=== PATIENT | female | born 1975 | race Caucasian/White ===

== ENCOUNTER 2023-06-11 19:45 | Inpatient (IN) | payer MEDICARE, OTHER ==
[~2023-06-11] VITALS: Ht 167.6 cm; Wt 78.5 kg
[2023-06-11 20:43] LABS: BASOPHILS # (AUTO) 0.1 K/uL (0.0-0.2); BASOPHILS % (AUTO) 0.7 % (0.0-2.0); EOSINOPHILS # (AUTO) 0.8 K/uL (0.0-0.7); EOSINOPHILS % (AUTO) 6.8 % (0.0-6.0); HEMATOCRIT 33 % (33-45); HEMOGLOBIN 10.2 g/dL (11.5-14.8); LYMPHOCYTES # (AUTO) 0.7 K/uL (0.8-4.8); MEAN CORPUSCULAR HEMOGLOBIN 29 PG (26.0-33.0); MEAN CORPUSCULAR HGB CONC 31 g/dl (31.0-36.0); MEAN CORPUSCULAR VOLUME 93 fL (82-100); MONOCYTES # (AUTO) 0.8 K/uL (0.1-1.30); MONOCYTES % (AUTO) 6.9 % (2.0-12.0); NEUTROPHILS # (AUTO) 9.9 K/uL (1.8-8.9); NEUTROPHILS % (AUTO) 79.6 % (43.0-81.0); PLATELET COUNT (AUTO) 385 K/uL (150-450); RED BLOOD CELL COUNT(AUTO) 3.53 MIL/uL (4.0-5.2); RED CELL DISTRIBUTION WIDTH 18.2 % (11.5-15.0); WHITE BLOOD COUNT (AUTO) 12.4 K/uL (4.3-11.0)
[2023-06-11 20:58] LABS: ABG BASE EXCESS -6.1 mmol/L; ABG OXYGEN SATURATION 92.3 % (92.0-98.5); ABG PCO2 40.9 mmHg (35.0-45.0); ABG PH 7.304 (7.350-7.450); ABG PO2 71.1 mmHg (75.0-100.0); ABG TOTAL HEMOGLOBIN 11.3 G/dL (12.0-16.0); COHb 0.3 % (0.5-1.5); MetHb 0.3 % (0.0-1.5); O2Hb 91.7 % (94.0-97.0); SITE, ABG Left Radial; VENT MODE, BG Nasal Cannula
[2023-06-11 21:05] LABS: PREGNANCY TEST URINE QUAL NEGATIVE (NEGATIVE)
[2023-06-11 21:16] LABS: APPEARANCE,URINE SLIGHTLY CLOUDY (CLEAR); BILIRUBIN,URINE NEGATIVE (NEGATIVE); BLOOD, URINE 1+ Ery/uL (NEGATIVE); COLOR,URINE YELLOW (YELLOW); KETONES,URINE NEGATIVE (NEGATIVE); LEUKOCYTE ESTERASE ,URINE 1+ (NEGATIVE); NITRITE, URINE POSITIVE (NEGATIVE); PROTEIN,URINE 1+ mg/dl (NEGATIVE); UGLUCOSE NEGATIVE (NEGATIVE); UROBILINOGEN,URINE 0.2 EU/dL (0.2)
[2023-06-11 21:19] LABS: SERUM AMMONIA 24 umol/L (11-32)
[2023-06-11 21:21] LABS: MAGNESIUM 3.5 mg/dL (1.8-2.4)
[2023-06-11 21:26] LABS: ALANINE AMINOTRANSFERASE 9 U/L (12-78); ALBUMIN 2.6 g/dL (3.4-5.0); ALKALINE PHOSPHATASE 182 U/L (46-116); ASPARTATE AMINOTRANSFERASE 6 U/L (15-37); BILIRUBIN,DIRECT 0.1 mg/dL (0.0-0.2); BILIRUBIN,TOTAL 0.3 mg/dL (0.2-1.0); CALCIUM, SERUM 11.3 mg/dL (8.5-10.1); CARBON DIOXIDE 19 mmol/L (21-32); CHLORIDE 100 mmol/L (98-107); CREATININE 6.8 mg/dL (0.6-1.3); GLUCOSE 99 mg/dL (74-106); POTASSIUM 4.9 mmol/L (3.5-5.1); SODIUM SERUM 131 mmol/L (136-145)
[2023-06-11 21:32] LABS: ACETAMINOPHEN 0 ug/ml (10-30)
[2023-06-11 21:35] LABS: UREA NITROGEN, BLOOD 73 mg/dL (7-18)
[2023-06-11 21:57] LABS: SALICYLATE 5.1 mg/dL (2.8-20.0)
[2023-06-11] MEDS ORDERED: CEFTRIAXONE 1GM BAG (ER ONLY) 1 GM/50 ML PIGGYBACK IV ONE (22:00)
[2023-06-11] MEDS ORDERED: CEFTRIAXONE 1GM BAG (ER ONLY) 50 ML IV ONE (22:04)
[2023-06-11 22:18] LABS: ADD URINE CULTURE YES; BACTERIA,URINE 4+ /HPF (None Seen); MUCUS,URINE Moderate /LPF (None Seen)
[2023-06-11 22:19] LABS: ALCOHOL, BLOOD < 3 mg/dL (0-10)
[2023-06-11 22:22] LABS: NT-PRO BNP 223 pg/mL (0-125)
[2023-06-11] MEDS ORDERED: VANCOMYCIN 1 GM in IV D5W 250 ML IV ONE (22:30)
[2023-06-11] MEDS ORDERED: AZITHROMYCIN 500 MG in IV D5W 250 ML IV ONE (22:30)
[2023-06-11] MEDS ORDERED: PIPERACILLIN /TAZOBACTAM 3.375 G in IV D5W 50 ML IV ONE (22:30)
[2023-06-11] MEDS ORDERED: PIPERACI/TAZO 3.375GM/D5W 50ML PB IV ONE (22:32)
[2023-06-11] MEDS ORDERED: VANCOMYCIN 1 GM /D5W 250 ML PB IV ONE (22:32)
[2023-06-11] MEDS ORDERED: AZITHROMYCIN 500 MG VIAL ONE (22:32)
[2023-06-11] MEDS ORDERED: IV NS 0.9% 1,000 ML BAG IV ONE (23:00)
[2023-06-11] MEDS ORDERED: IV NS 0.9% 1,000 ML IV PRN (23:30)
[2023-06-11] MEDS ORDERED: ACETAMINOPHEN 325 MG TABLET PO PRN (23:30)
[2023-06-11] MEDS ORDERED: ONDANSETRON HCL/PF 4 MG/2 ML VIAL IVP PRN (23:30)
[2023-06-12 00:50] LABS: LIPASE 125 U/L (16-77)
[2023-06-12] MEDS ORDERED: HEPARIN SODIUM, PORCINE 5000 UNITS/1 ML VIAL ONE (05:16)
[2023-06-12] MEDS: HEPARIN SODIUM, PORCINE 5000 UNITS/1 ML VIAL SQ SCH ×3 (05:52→22:05)
[2023-06-12] MEDS: PIPERACILLIN /TAZOBACTAM 2.25 G in IV D5W 50 ML IV SCH ×3 (06:50→22:26)
[2023-06-12 07:02] LABS: BASOPHILS # (AUTO) 0.1 K/uL (0.0-0.2); BASOPHILS % (AUTO) 0.5 % (0.0-2.0); EOSINOPHILS # (AUTO) 0.7 K/uL (0.0-0.7); EOSINOPHILS % (AUTO) 4.9 % (0.0-6.0); HEMATOCRIT 31 % (33-45); HEMOGLOBIN 9.7 g/dL (11.5-14.8); LYMPHOCYTES % (AUTO) 6.9 % (20.0-44.0); MEAN CORPUSCULAR HEMOGLOBIN 29 PG (26.0-33.0); MEAN CORPUSCULAR HGB CONC 31 g/dl (31.0-36.0); MEAN CORPUSCULAR VOLUME 94 fL (82-100); MONOCYTES # (AUTO) 1.1 K/uL (0.1-1.30); MONOCYTES % (AUTO) 7.4 % (2.0-12.0); NEUTROPHILS # (AUTO) 12.1 K/uL (1.8-8.9); NEUTROPHILS % (AUTO) 80.3 % (43.0-81.0); PLATELET COUNT (AUTO) 333 K/uL (150-450); RED CELL DISTRIBUTION WIDTH 18.1 % (11.5-15.0)
[2023-06-12 07:30] LABS: CALCIUM, SERUM 10.4 mg/dL (8.5-10.1); CREATININE 6.2 mg/dL (0.6-1.3); MAGNESIUM 3.4 mg/dL (1.8-2.4); PHOSPHORUS 7.5 mg/dL (2.5-4.9); POTASSIUM 5.8 mmol/L (3.5-5.1)
[2023-06-12] MEDS ORDERED: LISI10TA29 PO (09:03)
[2023-06-12] MEDS ORDERED: GABA-536 PO (09:03)
[2023-06-12] MEDS ORDERED: ATOR10TA PO (09:03)
[2023-06-12] MEDS ORDERED: LITH300T3 PO (09:03)
[2023-06-12] MEDS ORDERED: ARIP20TA4 PO (09:03)
[2023-06-12] MEDS: DOXYCYCLINE 100 MG in IV D5W 100 ML IV SCH ×2 (11:16→20:58)
[2023-06-12] MEDS ORDERED: HEPARIN SODIUM,PORCINE/PF 50 UNIT/5 ML DISP.SYRIN IV ONE (13:00)
[2023-06-12] MEDS ORDERED: HEPARIN SODIUM, PORCINE 1000 UNIT/1 ML VIAL IV ONE (13:30)
[2023-06-12] MEDS ORDERED: HEPARIN-LOCK FLUSH PORCINE PF 100 UNITS/1 ML (10 ML)DISP.SYRIN IV ONE (14:00)
[2023-06-12 16:57] LABS: CALCIUM, SERUM 10.9 mg/dL (8.5-10.1); CREATININE 5.8 mg/dL (0.6-1.3)
[2023-06-12] MEDS ORDERED: ALBUMIN 25% 25 GM in PREMIX 1 EA IV PRN ×2 (18:30→19:00)
[2023-06-12 21:00] VITALS: BP 120/72; TEMP 97.8; O2SAT 98
[2023-06-12] MEDS: IV D5W 1,000 ML IV PRN (21:12)
[2023-06-13] VITALS: BP 111/60; TEMP 98.4; O2SAT 97
[2023-06-13 04:15] VITALS: BP 117/77; TEMP 98.1; O2SAT 98
[2023-06-13] MEDS: PIPERACILLIN /TAZOBACTAM 2.25 G in IV D5W 50 ML IV SCH ×3 (04:26→22:07)
[2023-06-13 07:00] VITALS: BP 130/75; TEMP 98.6; O2SAT 95
[2023-06-13 07:33] LABS: BASOPHILS % (AUTO) 0.5 % (0.0-2.0); EOSINOPHILS # (AUTO) 0.6 K/uL (0.0-0.7); EOSINOPHILS % (AUTO) 6.1 % (0.0-6.0); HEMATOCRIT 29 % (33-45); HEMOGLOBIN 9.7 g/dL (11.5-14.8); LYMPHOCYTES # (AUTO) 1.1 K/uL (0.8-4.8); LYMPHOCYTES % (AUTO) 11.7 % (20.0-44.0); MEAN CORPUSCULAR HEMOGLOBIN 31 PG (26.0-33.0); MEAN CORPUSCULAR HGB CONC 33 g/dl (31.0-36.0); MEAN CORPUSCULAR VOLUME 92 fL (82-100); MONOCYTES # (AUTO) 0.7 K/uL (0.1-1.30); MONOCYTES % (AUTO) 7.5 % (2.0-12.0); NEUTROPHILS # (AUTO) 6.9 K/uL (1.8-8.9); NEUTROPHILS % (AUTO) 74.2 % (43.0-81.0); PLATELET COUNT (AUTO) 294 K/uL (150-450); RED BLOOD CELL COUNT(AUTO) 3.18 MIL/uL (4.0-5.2); RED CELL DISTRIBUTION WIDTH 17.4 % (11.5-15.0); WHITE BLOOD COUNT (AUTO) 9.3 K/uL (4.3-11.0)
[2023-06-13 07:45] LABS: ALANINE AMINOTRANSFERASE < 6 U/L (12-78); ALBUMIN 2.3 g/dL (3.4-5.0); ALKALINE PHOSPHATASE 178 U/L (46-116); ASPARTATE AMINOTRANSFERASE 9 U/L (15-37); BILIRUBIN,TOTAL 0.3 mg/dL (0.2-1.0); CALCIUM, SERUM 10.5 mg/dL (8.5-10.1); CARBON DIOXIDE 23 mmol/L (21-32); CHLORIDE 104 mmol/L (98-107); CREATININE 3.8 mg/dL (0.6-1.3); GLUCOSE 126 mg/dL (74-106); MAGNESIUM 2.4 mg/dL (1.8-2.4); POTASSIUM 3.8 mmol/L (3.5-5.1); SODIUM SERUM 135 mmol/L (136-145); TOTAL PROTEIN, SERUM 7.2 g/dL (6.4-8.2); UREA NITROGEN, BLOOD 39 mg/dL (7-18)
[2023-06-13 08:21] LABS: CREATINE KINASE, TOTAL 10 U/L (26-192)
[2023-06-13] MEDS: DOXYCYCLINE 100 MG in IV D5W 100 ML IV SCH ×2 (09:00→20:38)
[2023-06-13] MEDS ORDERED: PIPERACILLIN /TAZOBACTAM 3.375 G in IV D5W 50 ML IV SCH (10:30)
[2023-06-13] MEDS: HEPARIN SODIUM, PORCINE 5000 UNITS/1 ML VIAL SQ SCH ×2 (10:55→20:39)
[2023-06-13 12:00] VITALS: BP 127/78; TEMP 98.4; O2SAT 96
[2023-06-13] MEDS ORDERED: TUBERCULIN,PURIF.PROT.DERIV. 5 TU/0.1 ML VIAL ID ONE (12:00)
[2023-06-13 16:00] VITALS: BP 134/82; TEMP 98.6; O2SAT 97
[2023-06-13 20:00] VITALS: BP 127/86; TEMP 98.3; O2SAT 97
[2023-06-13] MEDS: ATORVASTATIN 10 MG TABLET PO SCH (22:00)
[2023-06-14] VITALS: BP 125/81; TEMP 98.1; O2SAT 100
[2023-06-14] MEDS: IV D5W 1,000 ML IV PRN (00:30)
[2023-06-14 04:00] VITALS: BP 125/81; TEMP 98.1; O2SAT 98
[2023-06-14] MEDS: PIPERACILLIN /TAZOBACTAM 2.25 G in IV D5W 50 ML IV SCH ×3 (04:51→21:48)
[2023-06-14 07:31] LABS: BASOPHILS % (AUTO) 0.5 % (0.0-2.0); EOSINOPHILS # (AUTO) 0.5 K/uL (0.0-0.7); EOSINOPHILS % (AUTO) 5.1 % (0.0-6.0); HEMATOCRIT 32 % (33-45); HEMOGLOBIN 10.2 g/dL (11.5-14.8); LYMPHOCYTES # (AUTO) 1.4 K/uL (0.8-4.8); LYMPHOCYTES % (AUTO) 14.6 % (20.0-44.0); MEAN CORPUSCULAR HEMOGLOBIN 30 PG (26.0-33.0); MEAN CORPUSCULAR HGB CONC 32 g/dl (31.0-36.0); MEAN CORPUSCULAR VOLUME 92 fL (82-100); MONOCYTES # (AUTO) 0.6 K/uL (0.1-1.30); MONOCYTES % (AUTO) 6.5 % (2.0-12.0); NEUTROPHILS # (AUTO) 7.2 K/uL (1.8-8.9); NEUTROPHILS % (AUTO) 73.3 % (43.0-81.0); PLATELET COUNT (AUTO) 289 K/uL (150-450); RED BLOOD CELL COUNT(AUTO) 3.47 MIL/uL (4.0-5.2); RED CELL DISTRIBUTION WIDTH 17.1 % (11.5-15.0); WHITE BLOOD COUNT (AUTO) 9.8 K/uL (4.3-11.0)
[2023-06-14 07:35] LABS: CALCIUM, SERUM 11.1 mg/dL (8.5-10.1); CREATININE 2.6 mg/dL (0.6-1.3); POTASSIUM 3.6 mmol/L (3.5-5.1)
[2023-06-14 08:00] VITALS: BP 131/88; TEMP 98.2; O2SAT 94
[2023-06-14] MEDS: DOXYCYCLINE 100 MG in IV D5W 100 ML IV SCH ×2 (08:13→21:48)
[2023-06-14] MEDS: HEPARIN SODIUM, PORCINE 5000 UNITS/1 ML VIAL SQ SCH ×2 (08:13→21:49)
[2023-06-14] MEDS ORDERED: IV D5/ 0.9% NACL 1,000 ML IV ONE (11:00)
[2023-06-14 12:00] VITALS: BP 140/85; TEMP 98.2; O2SAT 93
[2023-06-14 16:11] VITALS: BP 150/91; TEMP 98.2; O2SAT 94
[2023-06-14 19:00] VITALS: BP 142/84; TEMP 99.7; O2SAT 93
[2023-06-14 21:50] LABS: HIV-1 p24 ANTIGEN NON REACTIVE (NONREACTIVE); HIV-1/2 ANTIBODY NON REACTIVE (NONREACTIVE)
[2023-06-14] MEDS: ATORVASTATIN 10 MG TABLET PO SCH (21:50)
[2023-06-15 04:06] LABS: PTH, INTACT 36 pg/mL (15-65)
[2023-06-15] MEDS: PIPERACILLIN /TAZOBACTAM 2.25 G in IV D5W 50 ML IV SCH ×3 (04:11→21:08)
[2023-06-15] MEDS ORDERED: hydrALAZINE HCL IV 20 MG VIAL IV PRN (05:30)
[2023-06-15 07:00] VITALS: BP 147/97; TEMP 98.6; O2SAT 95
[2023-06-15 08:11] LABS: BASOPHILS # (AUTO) 0.1 K/uL (0.0-0.2); BASOPHILS % (AUTO) 0.5 % (0.0-2.0); EOSINOPHILS # (AUTO) 0.4 K/uL (0.0-0.7); EOSINOPHILS % (AUTO) 3.9 % (0.0-6.0); HEMATOCRIT 34 % (33-45); LYMPHOCYTES # (AUTO) 1.4 K/uL (0.8-4.8); LYMPHOCYTES % (AUTO) 12.6 % (20.0-44.0); MEAN CORPUSCULAR HEMOGLOBIN 30 PG (26.0-33.0); MEAN CORPUSCULAR HGB CONC 33 g/dl (31.0-36.0); MEAN CORPUSCULAR VOLUME 91 fL (82-100); MONOCYTES # (AUTO) 0.5 K/uL (0.1-1.30); MONOCYTES % (AUTO) 4.9 % (2.0-12.0); NEUTROPHILS # (AUTO) 8.5 K/uL (1.8-8.9); NEUTROPHILS % (AUTO) 78.1 % (43.0-81.0); PLATELET COUNT (AUTO) 298 K/uL (150-450); RED BLOOD CELL COUNT(AUTO) 3.71 MIL/uL (4.0-5.2); RED CELL DISTRIBUTION WIDTH 17.4 % (11.5-15.0); WHITE BLOOD COUNT (AUTO) 10.8 K/uL (4.3-11.0)
[2023-06-15 08:22] LABS: CALCIUM, SERUM 11.5 mg/dL (8.5-10.1); CREATININE 2.6 mg/dL (0.6-1.3); POTASSIUM 3.8 mmol/L (3.5-5.1)
[2023-06-15] MEDS: DOXYCYCLINE 100 MG in IV D5W 100 ML IV SCH ×2 (09:41→21:53)
[2023-06-15] MEDS: HEPARIN SODIUM, PORCINE 5000 UNITS/1 ML VIAL SQ SCH ×2 (09:45→21:09)
[2023-06-15 12:00] VITALS: BP 152/90; TEMP 98.1; O2SAT 94
[2023-06-15 12:08] LABS: *SPE A/G RATIO 0.7 (0.7-1.7); *SPE ALBUMIN 2.5 g/dL (2.9-4.4); *SPE ALPHA-1-GLOBULIN 0.3 g/dL (0.0-0.4); *SPE ALPHA-2-GLOBULIN 1.1 g/dL (0.4-1.0); *SPE BETA GLOBULIN 0.8 g/dL (0.7-1.3); *SPE GLOBULIN, TOTAL 3.7 g/dL (2.2-3.9); *SPE M-SPIKE Not Observed g/dL (Not Observed); *SPE PROTEIN TOTAL 6.2 g/dL (6.0-8.5); *SPEGAMMA GLOBULIN 1.5 g/dL (0.4-1.8)
[2023-06-15 16:00] VITALS: BP 140/92; TEMP 99.3; O2SAT 95
[2023-06-15 16:07] LABS: COCCIDIOIDES Abs, IgG,EIA 0.3 EIA Units (.); COCCIDIOIDES Abs, IgM,EIA 0.2 EIA Units (.)
[2023-06-15] MEDS ORDERED: ALTEPLASE CATHFLO 2 MG/VIAL XX ONE (16:30)
[2023-06-15 20:00] VITALS: BP 152/105; TEMP 97.6; O2SAT 99
[2023-06-15] MEDS: ATORVASTATIN 10 MG TABLET PO SCH (22:00)
[2023-06-16] MEDS: PIPERACILLIN /TAZOBACTAM 2.25 G in IV D5W 50 ML IV SCH ×3 (04:49→21:39)
[2023-06-16 07:00] VITALS: BP 158/139; TEMP 98.1; O2SAT 95
[2023-06-16] MEDS: HEPARIN SODIUM, PORCINE 5000 UNITS/1 ML VIAL SQ SCH ×2 (09:13→21:41)
[2023-06-16] MEDS: DOXYCYCLINE 100 MG in IV D5W 100 ML IV SCH ×2 (09:13→21:51)
[2023-06-16 09:31] LABS: BASOPHILS # (AUTO) 0.1 K/uL (0.0-0.2); BASOPHILS % (AUTO) 0.4 % (0.0-2.0); EOSINOPHILS # (AUTO) 0.3 K/uL (0.0-0.7); EOSINOPHILS % (AUTO) 2.1 % (0.0-6.0); HEMATOCRIT 38 % (33-45); HEMOGLOBIN 11.9 g/dL (11.5-14.8); LYMPHOCYTES # (AUTO) 1.4 K/uL (0.8-4.8); LYMPHOCYTES % (AUTO) 9.8 % (20.0-44.0); MEAN CORPUSCULAR HEMOGLOBIN 29 PG (26.0-33.0); MEAN CORPUSCULAR HGB CONC 32 g/dl (31.0-36.0); MEAN CORPUSCULAR VOLUME 92 fL (82-100); MONOCYTES # (AUTO) 0.6 K/uL (0.1-1.30); NEUTROPHILS # (AUTO) 11.7 K/uL (1.8-8.9); NEUTROPHILS % (AUTO) 83.7 % (43.0-81.0); PLATELET COUNT (AUTO) 297 K/uL (150-450); RED CELL DISTRIBUTION WIDTH 17.4 % (11.5-15.0)
[2023-06-16 09:47] LABS: CALCIUM, SERUM 11.7 mg/dL (8.5-10.1); CREATININE 2.3 mg/dL (0.6-1.3); POTASSIUM 4.2 mmol/L (3.5-5.1)
[2023-06-16] MEDS: IV D5W 1,000 ML IV PRN ×2 (10:43→21:55)
[2023-06-16 16:00] VITALS: BP 148/105; TEMP 98.4; O2SAT 96
[2023-06-16 20:00] VITALS: BP 155/103; TEMP 98.4; O2SAT 96
[2023-06-16] MEDS: ATORVASTATIN 10 MG TABLET PO SCH (22:00)
[2023-06-17] MEDS: PIPERACILLIN /TAZOBACTAM 2.25 G in IV D5W 50 ML IV SCH ×3 (05:49→20:16)
[2023-06-17 07:24] LABS: BASOPHILS # (AUTO) 0.1 K/uL (0.0-0.2); BASOPHILS % (AUTO) 0.5 % (0.0-2.0); EOSINOPHILS # (AUTO) 0.7 K/uL (0.0-0.7); EOSINOPHILS % (AUTO) 4.6 % (0.0-6.0); HEMATOCRIT 38 % (33-45); HEMOGLOBIN 11.9 g/dL (11.5-14.8); LYMPHOCYTES # (AUTO) 2.1 K/uL (0.8-4.8); LYMPHOCYTES % (AUTO) 14.8 % (20.0-44.0); MEAN CORPUSCULAR HEMOGLOBIN 29 PG (26.0-33.0); MEAN CORPUSCULAR HGB CONC 32 g/dl (31.0-36.0); MEAN CORPUSCULAR VOLUME 92 fL (82-100); MONOCYTES # (AUTO) 0.6 K/uL (0.1-1.30); MONOCYTES % (AUTO) 4.1 % (2.0-12.0); NEUTROPHILS # (AUTO) 10.9 K/uL (1.8-8.9); PLATELET COUNT (AUTO) 317 K/uL (150-450); RED CELL DISTRIBUTION WIDTH 17.9 % (11.5-15.0); WHITE BLOOD COUNT (AUTO) 14.3 K/uL (4.3-11.0)
[2023-06-17 07:36] LABS: CALCIUM, SERUM 11.4 mg/dL (8.5-10.1); CREATININE 2.2 mg/dL (0.6-1.3); POTASSIUM 3.7 mmol/L (3.5-5.1)
[2023-06-17] MEDS: DOXYCYCLINE 100 MG in IV D5W 100 ML IV SCH ×2 (09:02→21:05)
[2023-06-17] MEDS: IV D5W 1,000 ML IV PRN (09:02)
[2023-06-17] MEDS: HEPARIN SODIUM, PORCINE 5000 UNITS/1 ML VIAL SQ SCH ×2 (09:02→21:07)
[2023-06-17 09:09] LABS: HEPATITIS B CORE AB, IgM Negative (Negative); HEPATITIS B CORE AB, TOTAL Negative (Negative); HEPATITIS B SURFACE AB Non Reactive (.)
[2023-06-17 09:21] VITALS: BP 131/83; TEMP 97.7; O2SAT 97
[2023-06-17 18:16] VITALS: BP 130/85; TEMP 97.9; O2SAT 99
[2023-06-17 18:24] VITALS: BP 123/91; TEMP 98.5; O2SAT 97
[2023-06-17 20:00] VITALS: BP_SYST 121; BP_SYST 136; BP_DIAS 95; BP_DIAS 96; TEMP 97.7; TEMP 98.2; O2SAT 94; O2SAT 98
[2023-06-17] MEDS: ATORVASTATIN 10 MG TABLET PO SCH (22:00)
[2023-06-18] MEDS: PIPERACILLIN /TAZOBACTAM 2.25 G in IV D5W 50 ML IV SCH ×3 (05:50→21:10)
[2023-06-18] MEDS: IV D5W 1,000 ML IV PRN (05:52)
[2023-06-18 07:00] VITALS: BP 135/95; TEMP 98; O2SAT 96
[2023-06-18 07:38] LABS: BASOPHILS # (AUTO) 0.1 K/uL (0.0-0.2); BASOPHILS % (AUTO) 0.3 % (0.0-2.0); EOSINOPHILS # (AUTO) 0.8 K/uL (0.0-0.7); EOSINOPHILS % (AUTO) 4.6 % (0.0-6.0); HEMATOCRIT 40 % (33-45); LYMPHOCYTES # (AUTO) 2.3 K/uL (0.8-4.8); LYMPHOCYTES % (AUTO) 13.3 % (20.0-44.0); MEAN CORPUSCULAR HEMOGLOBIN 29 PG (26.0-33.0); MEAN CORPUSCULAR HGB CONC 30 g/dl (31.0-36.0); MEAN CORPUSCULAR VOLUME 95 fL (82-100); MONOCYTES # (AUTO) 0.7 K/uL (0.1-1.30); MONOCYTES % (AUTO) 3.8 % (2.0-12.0); NEUTROPHILS # (AUTO) 13.4 K/uL (1.8-8.9); PLATELET COUNT (AUTO) 280 K/uL (150-450); RED CELL DISTRIBUTION WIDTH 18.5 % (11.5-15.0); WHITE BLOOD COUNT (AUTO) 17.2 K/uL (4.3-11.0)
[2023-06-18 07:59] LABS: CALCIUM, SERUM 11.3 mg/dL (8.5-10.1); CREATININE 2.3 mg/dL (0.6-1.3); POTASSIUM 3.6 mmol/L (3.5-5.1)
[2023-06-18] MEDS: HEPARIN SODIUM, PORCINE 5000 UNITS/1 ML VIAL SQ SCH ×2 (08:38→21:43)
[2023-06-18] MEDS: DOXYCYCLINE 100 MG in IV D5W 100 ML IV SCH ×2 (08:54→21:46)
[2023-06-18 16:00] VITALS: BP 142/107; TEMP 98.4; O2SAT 98
[2023-06-18 17:48] LABS: APPEARANCE,URINE CLEAR (CLEAR); BILIRUBIN,URINE NEGATIVE (NEGATIVE); BLOOD, URINE 1+ Ery/uL (NEGATIVE); COLOR,URINE YELLOW (YELLOW); KETONES,URINE NEGATIVE (NEGATIVE); LEUKOCYTE ESTERASE ,URINE 1+ (NEGATIVE); NITRITE, URINE NEGATIVE (NEGATIVE); PROTEIN,URINE NEGATIVE (NEGATIVE); UGLUCOSE NEGATIVE (NEGATIVE); UROBILINOGEN,URINE 0.2 EU/dL (0.2)
[2023-06-18 18:14] LABS: ADD URINE CULTURE YES; BACTERIA,URINE 1+ /HPF (None Seen); YEAST,URINE Few /HPF (None Seen)
[2023-06-18 18:18] LABS: CREATININE, URINE 58.5 MG/DL (30.0-125.0); URINE TOTAL PROTEIN 15.4 mg/dL (0-11.9)
[2023-06-18 18:48] LABS: EOSINOPHIL,URINE None Seen
[2023-06-18 20:00] VITALS: BP 156/94; TEMP 97.6; O2SAT 99
[2023-06-18] MEDS: ATORVASTATIN 10 MG TABLET PO SCH (21:11)
[2023-06-19] MEDS: PIPERACILLIN /TAZOBACTAM 2.25 G in IV D5W 50 ML IV SCH ×3 (05:20→21:38)
[2023-06-19] MEDS: IV D5W 1,000 ML IV PRN ×2 (05:20→18:21)
[2023-06-19 08:05] LABS: BASOPHILS # (AUTO) 0.1 K/uL (0.0-0.2); BASOPHILS % (AUTO) 0.5 % (0.0-2.0); EOSINOPHILS # (AUTO) 0.6 K/uL (0.0-0.7); EOSINOPHILS % (AUTO) 4.4 % (0.0-6.0); HEMATOCRIT 36 % (33-45); HEMOGLOBIN 11.4 g/dL (11.5-14.8); LYMPHOCYTES # (AUTO) 2.5 K/uL (0.8-4.8); LYMPHOCYTES % (AUTO) 18.2 % (20.0-44.0); MEAN CORPUSCULAR HEMOGLOBIN 29 PG (26.0-33.0); MEAN CORPUSCULAR HGB CONC 32 g/dl (31.0-36.0); MEAN CORPUSCULAR VOLUME 92 fL (82-100); MONOCYTES # (AUTO) 0.5 K/uL (0.1-1.30); MONOCYTES % (AUTO) 3.8 % (2.0-12.0); NEUTROPHILS # (AUTO) 10.1 K/uL (1.8-8.9); NEUTROPHILS % (AUTO) 73.1 % (43.0-81.0); PLATELET COUNT (AUTO) 277 K/uL (150-450); RED BLOOD CELL COUNT(AUTO) 3.88 MIL/uL (4.0-5.2); RED CELL DISTRIBUTION WIDTH 17.8 % (11.5-15.0); WHITE BLOOD COUNT (AUTO) 13.8 K/uL (4.3-11.0)
[2023-06-19 08:06] LABS: CALCIUM, SERUM 11.1 mg/dL (8.5-10.1); POTASSIUM 3.7 mmol/L (3.5-5.1)
[2023-06-19 08:31] VITALS: BP 146/97; TEMP 98.1; O2SAT 99
[2023-06-19] MEDS: DOXYCYCLINE 100 MG in IV D5W 100 ML IV SCH ×2 (09:12→22:00)
[2023-06-19 16:05] VITALS: BP 132/92; TEMP 98.1; O2SAT 95
[2023-06-19 20:00] VITALS: BP 143/96; TEMP 98.4; O2SAT 95; O2SAT 98
[2023-06-19] MEDS: ATORVASTATIN 10 MG TABLET PO SCH (22:00)
[2023-06-20] MEDS: PIPERACILLIN /TAZOBACTAM 2.25 G in IV D5W 50 ML IV SCH ×2 (05:23→13:04)
[2023-06-20 08:07] LABS: POTASSIUM 4.1 mmol/L (3.5-5.1)
[2023-06-20 08:22] VITALS: BP 116/84; TEMP 98.9; O2SAT 99
[2023-06-20] MEDS: DOXYCYCLINE 100 MG in IV D5W 100 ML IV SCH (09:22)
[2023-06-20] MEDS: IV NS 0.9% 1,000 ML IV SCH (12:11)
[2023-06-20 15:59] VITALS: BP 124/96; TEMP 98.2; O2SAT 98
[2023-06-20 17:15] LABS: BASOPHILS # (AUTO) 0.1 K/uL (0.0-0.2); BASOPHILS % (AUTO) 0.6 % (0.0-2.0); EOSINOPHILS # (AUTO) 0.5 K/uL (0.0-0.7); HEMATOCRIT 39 % (33-45); HEMOGLOBIN 11.9 g/dL (11.5-14.8); LYMPHOCYTES # (AUTO) 2.7 K/uL (0.8-4.8); LYMPHOCYTES % (AUTO) 16.1 % (20.0-44.0); MEAN CORPUSCULAR HEMOGLOBIN 28 PG (26.0-33.0); MEAN CORPUSCULAR HGB CONC 31 g/dl (31.0-36.0); MEAN CORPUSCULAR VOLUME 92 fL (82-100); MONOCYTES # (AUTO) 0.7 K/uL (0.1-1.30); MONOCYTES % (AUTO) 4.3 % (2.0-12.0); PLATELET COUNT (AUTO) 283 K/uL (150-450); RED BLOOD CELL COUNT(AUTO) 4.17 MIL/uL (4.0-5.2); RED CELL DISTRIBUTION WIDTH 17.8 % (11.5-15.0); WHITE BLOOD COUNT (AUTO) 17.1 K/uL (4.3-11.0)
[2023-06-20 20:00] VITALS: BP 119/87; TEMP 97.5; O2SAT 98
[2023-06-20] MEDS: ATORVASTATIN 10 MG TABLET PO SCH (22:00)
[2023-06-21 07:17] LABS: BASOPHILS # (AUTO) 0.1 K/uL (0.0-0.2); BASOPHILS % (AUTO) 0.5 % (0.0-2.0); EOSINOPHILS # (AUTO) 0.6 K/uL (0.0-0.7); EOSINOPHILS % (AUTO) 4.2 % (0.0-6.0); HEMATOCRIT 39 % (33-45); HEMOGLOBIN 12.2 g/dL (11.5-14.8); LYMPHOCYTES # (AUTO) 2.2 K/uL (0.8-4.8); LYMPHOCYTES % (AUTO) 16.5 % (20.0-44.0); MEAN CORPUSCULAR HEMOGLOBIN 29 PG (26.0-33.0); MEAN CORPUSCULAR HGB CONC 32 g/dl (31.0-36.0); MEAN CORPUSCULAR VOLUME 93 fL (82-100); MONOCYTES # (AUTO) 0.7 K/uL (0.1-1.30); MONOCYTES % (AUTO) 5.5 % (2.0-12.0); NEUTROPHILS # (AUTO) 9.6 K/uL (1.8-8.9); NEUTROPHILS % (AUTO) 73.3 % (43.0-81.0); PLATELET COUNT (AUTO) 281 K/uL (150-450); RED BLOOD CELL COUNT(AUTO) 4.14 MIL/uL (4.0-5.2); WHITE BLOOD COUNT (AUTO) 13.1 K/uL (4.3-11.0)
[2023-06-21 07:26] LABS: CALCIUM, SERUM 10.9 mg/dL (8.5-10.1); CREATININE 1.8 mg/dL (0.6-1.3); POTASSIUM 3.9 mmol/L (3.5-5.1)
[2023-06-21] MEDS: IV NS 0.9% 1,000 ML IV SCH (07:48)
[2023-06-21] MEDS: OLANZAPINE 5 MG TABLET PO SCH ×2 (10:31→21:19)
[2023-06-21 15:59] VITALS: BP 145/96; TEMP 98.6; O2SAT 99
[2023-06-21] MEDS: CARBAMAZEPINE 200 MG TABLET PO SCH (16:21)
[2023-06-21 18:34] LABS: BASOPHILS # (AUTO) 0.1 K/uL (0.0-0.2); BASOPHILS % (AUTO) 0.4 % (0.0-2.0); EOSINOPHILS # (AUTO) 0.6 K/uL (0.0-0.7); EOSINOPHILS % (AUTO) 4.8 % (0.0-6.0); HEMATOCRIT 40 % (33-45); HEMOGLOBIN 12.4 g/dL (11.5-14.8); LYMPHOCYTES # (AUTO) 2.3 K/uL (0.8-4.8); LYMPHOCYTES % (AUTO) 18.9 % (20.0-44.0); MEAN CORPUSCULAR HEMOGLOBIN 29 PG (26.0-33.0); MEAN CORPUSCULAR HGB CONC 31 g/dl (31.0-36.0); MEAN CORPUSCULAR VOLUME 94 fL (82-100); MONOCYTES # (AUTO) 0.5 K/uL (0.1-1.30); MONOCYTES % (AUTO) 4.3 % (2.0-12.0); NEUTROPHILS # (AUTO) 8.9 K/uL (1.8-8.9); NEUTROPHILS % (AUTO) 71.6 % (43.0-81.0); PLATELET COUNT (AUTO) 263 K/uL (150-450); RED BLOOD CELL COUNT(AUTO) 4.31 MIL/uL (4.0-5.2); WHITE BLOOD COUNT (AUTO) 12.4 K/uL (4.3-11.0)
[2023-06-21 18:46] LABS: INR 1.31 (0.91-1.10); PARTIAL THROMBOPLASTIN TIME 31.6 SEC (24.3-34.3); PROTHROMBIN TIME 13.6 SECS (9.2-11.1)
[2023-06-21 20:00] VITALS: BP 144/84; TEMP 97.7; O2SAT 100
[2023-06-21] MEDS: ATORVASTATIN 10 MG TABLET PO SCH (21:19)
[2023-06-22 01:37] VITALS: BP 145/96; TEMP 98.6; O2SAT 99
[2023-06-22] MEDS: IV NS 0.9% 1,000 ML IV SCH ×2 (03:19→23:33)
[2023-06-22 08:08] LABS: BASOPHILS # (AUTO) 0.1 K/uL (0.0-0.2); BASOPHILS % (AUTO) 0.6 % (0.0-2.0); EOSINOPHILS # (AUTO) 0.5 K/uL (0.0-0.7); EOSINOPHILS % (AUTO) 4.2 % (0.0-6.0); HEMATOCRIT 36 % (33-45); HEMOGLOBIN 11.1 g/dL (11.5-14.8); LYMPHOCYTES # (AUTO) 2.1 K/uL (0.8-4.8); LYMPHOCYTES % (AUTO) 18.9 % (20.0-44.0); MEAN CORPUSCULAR HEMOGLOBIN 29 PG (26.0-33.0); MEAN CORPUSCULAR HGB CONC 31 g/dl (31.0-36.0); MEAN CORPUSCULAR VOLUME 93 fL (82-100); MONOCYTES # (AUTO) 0.7 K/uL (0.1-1.30); NEUTROPHILS # (AUTO) 7.8 K/uL (1.8-8.9); NEUTROPHILS % (AUTO) 70.3 % (43.0-81.0); PLATELET COUNT (AUTO) 235 K/uL (150-450); RED BLOOD CELL COUNT(AUTO) 3.82 MIL/uL (4.0-5.2); RED CELL DISTRIBUTION WIDTH 17.7 % (11.5-15.0); WHITE BLOOD COUNT (AUTO) 11.1 K/uL (4.3-11.0)
[2023-06-22 08:25] LABS: ALBUMIN 2.6 g/dL (3.4-5.0); BILIRUBIN,TOTAL 0.3 mg/dL (0.2-1.0); CALCIUM, SERUM 10.4 mg/dL (8.5-10.1); CREATININE 1.5 mg/dL (0.6-1.3); MAGNESIUM 2.1 mg/dL (1.8-2.4); POTASSIUM 3.8 mmol/L (3.5-5.1); TOTAL PROTEIN, SERUM 6.6 g/dL (6.4-8.2)
[2023-06-22 09:24] VITALS: BP 124/88; TEMP 97.5; O2SAT 100
[2023-06-22] MEDS: OLANZAPINE 5 MG TABLET PO SCH ×2 (10:49→21:00)
[2023-06-22] MEDS: CARBAMAZEPINE 200 MG TABLET PO SCH ×2 (10:49→16:31)
[2023-06-22 20:00] VITALS: BP 126/84; TEMP 98.6; O2SAT 100
[2023-06-22] MEDS: ATORVASTATIN 10 MG TABLET PO SCH (21:00)
[2023-06-23] MEDS: OLANZAPINE 5 MG TABLET PO SCH ×2 (08:45→21:02)
[2023-06-23] MEDS: CARBAMAZEPINE 200 MG TABLET PO SCH ×2 (08:45→16:59)
[2023-06-23 10:04] VITALS: BP 129/82; TEMP 97.7; O2SAT 99
[2023-06-23] MEDS: IV NS 0.9% 1,000 ML IV SCH (18:34)
[2023-06-23 20:00] VITALS: BP 131/93; TEMP 98.1; O2SAT 97
[2023-06-23] MEDS: ATORVASTATIN 10 MG TABLET PO SCH (21:02)
[2023-06-24 07:00] VITALS: BP 118/77; TEMP 98.6; O2SAT 100
[2023-06-24 07:16] LABS: BASOPHILS # (AUTO) 0.1 K/uL (0.0-0.2); BASOPHILS % (AUTO) 0.6 % (0.0-2.0); EOSINOPHILS # (AUTO) 0.3 K/uL (0.0-0.7); HEMATOCRIT 32 % (33-45); HEMOGLOBIN 10.4 g/dL (11.5-14.8); LYMPHOCYTES # (AUTO) 2.2 K/uL (0.8-4.8); MEAN CORPUSCULAR HEMOGLOBIN 30 PG (26.0-33.0); MEAN CORPUSCULAR HGB CONC 32 g/dl (31.0-36.0); MEAN CORPUSCULAR VOLUME 93 fL (82-100); MONOCYTES # (AUTO) 0.7 K/uL (0.1-1.30); MONOCYTES % (AUTO) 8.3 % (2.0-12.0); NEUTROPHILS # (AUTO) 4.8 K/uL (1.8-8.9); NEUTROPHILS % (AUTO) 60.1 % (43.0-81.0); PLATELET COUNT (AUTO) 215 K/uL (150-450); RED BLOOD CELL COUNT(AUTO) 3.48 MIL/uL (4.0-5.2); RED CELL DISTRIBUTION WIDTH 17.8 % (11.5-15.0)
[2023-06-24 07:40] LABS: ALBUMIN 2.4 g/dL (3.4-5.0); BILIRUBIN,TOTAL 0.3 mg/dL (0.2-1.0); CREATININE 1.4 mg/dL (0.6-1.3); POTASSIUM 3.9 mmol/L (3.5-5.1)
[2023-06-24] MEDS: CARBAMAZEPINE 200 MG TABLET PO SCH ×2 (09:14→17:24)
[2023-06-24] MEDS: OLANZAPINE 5 MG TABLET PO SCH ×2 (09:14→21:39)
[2023-06-24 11:23] LABS: HIV-1 p24 ANTIGEN NON REACTIVE (NONREACTIVE); HIV-1/2 ANTIBODY NON REACTIVE (NONREACTIVE)
[2023-06-24 16:00] VITALS: BP 124/83; TEMP 98.4; O2SAT 98
[2023-06-24] MEDS: IV NS 0.9% 1,000 ML IV PRN (17:27)
[2023-06-24 20:00] VITALS: BP 123/70; TEMP 98.4; O2SAT 98
[2023-06-24 21:18] VITALS: BP 123/70; TEMP 98.4; O2SAT 98
[2023-06-24] MEDS: ATORVASTATIN 10 MG TABLET PO SCH (21:39)
[2023-06-25 07:34] LABS: BASOPHILS # (AUTO) 0.1 K/uL (0.0-0.2); BASOPHILS % (AUTO) 0.8 % (0.0-2.0); EOSINOPHILS # (AUTO) 0.3 K/uL (0.0-0.7); EOSINOPHILS % (AUTO) 4.7 % (0.0-6.0); HEMATOCRIT 38 % (33-45); HEMOGLOBIN 11.8 g/dL (11.5-14.8); LYMPHOCYTES % (AUTO) 27.3 % (20.0-44.0); MEAN CORPUSCULAR HEMOGLOBIN 29 PG (26.0-33.0); MEAN CORPUSCULAR HGB CONC 31 g/dl (31.0-36.0); MEAN CORPUSCULAR VOLUME 94 fL (82-100); MONOCYTES # (AUTO) 0.7 K/uL (0.1-1.30); MONOCYTES % (AUTO) 9.7 % (2.0-12.0); NEUTROPHILS # (AUTO) 4.1 K/uL (1.8-8.9); NEUTROPHILS % (AUTO) 57.5 % (43.0-81.0); PLATELET COUNT (AUTO) 244 K/uL (150-450); RED BLOOD CELL COUNT(AUTO) 4.03 MIL/uL (4.0-5.2); RED CELL DISTRIBUTION WIDTH 17.3 % (11.5-15.0); WHITE BLOOD COUNT (AUTO) 7.2 K/uL (4.3-11.0)
[2023-06-25 08:00] VITALS: BP 161/99; TEMP 98.2; O2SAT 96
[2023-06-25] MEDS: OLANZAPINE 5 MG TABLET PO SCH ×2 (08:56→21:59)
[2023-06-25] MEDS: CARBAMAZEPINE 200 MG TABLET PO SCH ×2 (08:56→16:25)
[2023-06-25 09:06] LABS: ALBUMIN 2.7 g/dL (3.4-5.0); BILIRUBIN,TOTAL 0.2 mg/dL (0.2-1.0); CALCIUM, SERUM 10.4 mg/dL (8.5-10.1); CREATININE 1.4 mg/dL (0.6-1.3); POTASSIUM 3.9 mmol/L (3.5-5.1); TOTAL PROTEIN, SERUM 6.6 g/dL (6.4-8.2)
[2023-06-25 09:15] LABS: HEPATITIS B SURFACE AB Non Reactive (.)
[2023-06-25 16:00] VITALS: BP 120/80; TEMP 98.2; O2SAT 99
[2023-06-25 20:00] VITALS: BP 124/79; TEMP 98.1; O2SAT 97
[2023-06-25] MEDS: ATORVASTATIN 10 MG TABLET PO SCH (21:59)
[2023-06-25] MEDS: IV NS 0.9% 1,000 ML IV PRN (22:00)
[2023-06-26 07:00] VITALS: BP 116/81; TEMP 97.9; O2SAT 97
[2023-06-26 07:18] LABS: BASOPHILS # (AUTO) 0.1 K/uL (0.0-0.2); BASOPHILS % (AUTO) 0.7 % (0.0-2.0); EOSINOPHILS # (AUTO) 0.3 K/uL (0.0-0.7); HEMATOCRIT 33 % (33-45); HEMOGLOBIN 10.8 g/dL (11.5-14.8); LYMPHOCYTES # (AUTO) 2.1 K/uL (0.8-4.8); LYMPHOCYTES % (AUTO) 29.5 % (20.0-44.0); MEAN CORPUSCULAR HEMOGLOBIN 30 PG (26.0-33.0); MEAN CORPUSCULAR HGB CONC 32 g/dl (31.0-36.0); MEAN CORPUSCULAR VOLUME 92 fL (82-100); MONOCYTES # (AUTO) 0.7 K/uL (0.1-1.30); MONOCYTES % (AUTO) 9.1 % (2.0-12.0); NEUTROPHILS # (AUTO) 4.1 K/uL (1.8-8.9); NEUTROPHILS % (AUTO) 56.7 % (43.0-81.0); PLATELET COUNT (AUTO) 225 K/uL (150-450); RED BLOOD CELL COUNT(AUTO) 3.63 MIL/uL (4.0-5.2); RED CELL DISTRIBUTION WIDTH 17.6 % (11.5-15.0); WHITE BLOOD COUNT (AUTO) 7.3 K/uL (4.3-11.0)
[2023-06-26 08:11] LABS: ALBUMIN 2.4 g/dL (3.4-5.0); BILIRUBIN,TOTAL 0.2 mg/dL (0.2-1.0); CREATININE 1.3 mg/dL (0.6-1.3); POTASSIUM 3.8 mmol/L (3.5-5.1)
[2023-06-26] MEDS: CARBAMAZEPINE 200 MG TABLET PO SCH ×2 (09:20→16:04)
[2023-06-26] MEDS: OLANZAPINE 5 MG TABLET PO SCH ×2 (09:20→21:57)
[2023-06-26 16:00] VITALS: BP 127/90; TEMP 97.9; O2SAT 100
[2023-06-26 20:00] VITALS: BP 121/74; TEMP 98.4; O2SAT 100
[2023-06-26 20:29] VITALS: BP 121/74; TEMP 98.4; O2SAT 100
[2023-06-26] MEDS: ATORVASTATIN 10 MG TABLET PO SCH (21:57)
[2023-06-27 08:33] VITALS: BP 127/81; TEMP 98.2; O2SAT 98
[2023-06-27] MEDS: OLANZAPINE 5 MG TABLET PO SCH ×2 (08:35→20:47)
[2023-06-27] MEDS: CARBAMAZEPINE 200 MG TABLET PO SCH ×2 (08:35→16:55)
[2023-06-27 16:46] VITALS: BP 126/91; TEMP 98.3; O2SAT 96
[2023-06-27] MEDS: CLOTRIMAZOLE 1% 15 GM TUBE TP SCH (16:55)
[2023-06-27] MEDS ORDERED: PERMETHRIN 5% CRM 60 GM TUBE TP ONE (17:30)
[2023-06-27 20:30] VITALS: BP 125/77; TEMP 98.1; O2SAT 96
[2023-06-27] MEDS: ATORVASTATIN 10 MG TABLET PO SCH (20:47)
[2023-06-28] MEDS: OLANZAPINE 5 MG TABLET PO SCH ×2 (08:07→21:33)
[2023-06-28] MEDS: CARBAMAZEPINE 200 MG TABLET PO SCH ×2 (08:07→16:18)
[2023-06-28] MEDS: CLOTRIMAZOLE 1% 15 GM TUBE TP SCH ×2 (08:18→16:19)
[2023-06-28 09:06] LABS: BASOPHILS % (AUTO) 0.6 % (0.0-2.0); EOSINOPHILS # (AUTO) 0.3 K/uL (0.0-0.7); EOSINOPHILS % (AUTO) 4.8 % (0.0-6.0); HEMATOCRIT 34 % (33-45); HEMOGLOBIN 10.8 g/dL (11.5-14.8); LYMPHOCYTES # (AUTO) 1.9 K/uL (0.8-4.8); LYMPHOCYTES % (AUTO) 29.9 % (20.0-44.0); MEAN CORPUSCULAR HEMOGLOBIN 30 PG (26.0-33.0); MEAN CORPUSCULAR HGB CONC 32 g/dl (31.0-36.0); MEAN CORPUSCULAR VOLUME 92 fL (82-100); MONOCYTES # (AUTO) 0.4 K/uL (0.1-1.30); MONOCYTES % (AUTO) 6.4 % (2.0-12.0); NEUTROPHILS # (AUTO) 3.6 K/uL (1.8-8.9); NEUTROPHILS % (AUTO) 58.3 % (43.0-81.0); PLATELET COUNT (AUTO) 234 K/uL (150-450); RED BLOOD CELL COUNT(AUTO) 3.66 MIL/uL (4.0-5.2); RED CELL DISTRIBUTION WIDTH 17.1 % (11.5-15.0); WHITE BLOOD COUNT (AUTO) 6.3 K/uL (4.3-11.0)
[2023-06-28 09:22] LABS: ALBUMIN 2.5 g/dL (3.4-5.0); BILIRUBIN,TOTAL 0.1 mg/dL (0.2-1.0); CALCIUM, SERUM 10.2 mg/dL (8.5-10.1); CREATININE 1.4 mg/dL (0.6-1.3); PHOSPHORUS 5.1 mg/dL (2.5-4.9); POTASSIUM 3.3 mmol/L (3.5-5.1); TOTAL PROTEIN, SERUM 6.3 g/dL (6.4-8.2)
[2023-06-28 10:35] VITALS: BP 71/92; TEMP 97.3; O2SAT 96
[2023-06-28] MEDS: BACITRACIN/POLYMYXIN B 15 GM TUBE TP SCH (16:19)
[2023-06-28] MEDS: HYDROCORTISONE 1% CREAM 28.35 GM TUBE TP SCH (16:19)
[2023-06-28 20:00] VITALS: BP 104/74; TEMP 97.9; O2SAT 97
[2023-06-28] MEDS: ATORVASTATIN 10 MG TABLET PO SCH (21:33)
[2023-06-29 07:21] LABS: CALCIUM, SERUM 10.2 mg/dL (8.5-10.1); CREATININE 1.3 mg/dL (0.6-1.3); POTASSIUM 3.7 mmol/L (3.5-5.1)
[2023-06-29 07:28] LABS: BASOPHILS % (AUTO) 0.6 % (0.0-2.0); EOSINOPHILS # (AUTO) 0.2 K/uL (0.0-0.7); EOSINOPHILS % (AUTO) 4.6 % (0.0-6.0); HEMATOCRIT 32 % (33-45); HEMOGLOBIN 10.4 g/dL (11.5-14.8); LYMPHOCYTES # (AUTO) 2.1 K/uL (0.8-4.8); LYMPHOCYTES % (AUTO) 40.5 % (20.0-44.0); MEAN CORPUSCULAR HEMOGLOBIN 30 PG (26.0-33.0); MEAN CORPUSCULAR HGB CONC 32 g/dl (31.0-36.0); MEAN CORPUSCULAR VOLUME 92 fL (82-100); MONOCYTES # (AUTO) 0.5 K/uL (0.1-1.30); MONOCYTES % (AUTO) 9.5 % (2.0-12.0); NEUTROPHILS # (AUTO) 2.4 K/uL (1.8-8.9); NEUTROPHILS % (AUTO) 44.8 % (43.0-81.0); PLATELET COUNT (AUTO) 206 K/uL (150-450); RED BLOOD CELL COUNT(AUTO) 3.51 MIL/uL (4.0-5.2); RED CELL DISTRIBUTION WIDTH 16.4 % (11.5-15.0); WHITE BLOOD COUNT (AUTO) 5.3 K/uL (4.3-11.0)
[2023-06-29 08:00] VITALS: BP 129/80; TEMP 98.2; O2SAT 98
[2023-06-29] MEDS: OLANZAPINE 5 MG TABLET PO SCH ×2 (09:50→21:34)
[2023-06-29] MEDS: HYDROCORTISONE 1% CREAM 28.35 GM TUBE TP SCH ×2 (09:51→17:42)
[2023-06-29] MEDS: BACITRACIN/POLYMYXIN B 15 GM TUBE TP SCH ×2 (09:51→17:41)
[2023-06-29] MEDS: CARBAMAZEPINE 200 MG TABLET PO SCH ×2 (09:51→17:41)
[2023-06-29] MEDS: CLOTRIMAZOLE 1% 15 GM TUBE TP SCH ×2 (09:51→17:41)
[2023-06-29 16:00] VITALS: BP 116/75; TEMP 98.2; O2SAT 99
[2023-06-29 20:00] VITALS: BP 124/77; TEMP 99; O2SAT 100
[2023-06-29] MEDS: ATORVASTATIN 10 MG TABLET PO SCH (21:34)
[2023-06-30 08:40] VITALS: BP 132/84; TEMP 97.9; O2SAT 97
[2023-06-30] MEDS: OLANZAPINE 5 MG TABLET PO SCH ×2 (08:59→20:29)
[2023-06-30] MEDS: CARBAMAZEPINE 200 MG TABLET PO SCH ×2 (08:59→16:26)
[2023-06-30] MEDS: BACITRACIN/POLYMYXIN B 15 GM TUBE TP SCH ×2 (09:21→16:43)
[2023-06-30] MEDS: HYDROCORTISONE 1% CREAM 28.35 GM TUBE TP SCH ×2 (09:21→16:43)
[2023-06-30] MEDS: CLOTRIMAZOLE 1% 15 GM TUBE TP SCH ×2 (09:22→16:44)
[2023-06-30 16:18] VITALS: BP 139/89; TEMP 98.7; O2SAT 96
[2023-06-30] MEDS: IV NS 0.9% 1,000 ML IV PRN (16:47)
[2023-06-30 20:00] VITALS: BP 119/77; TEMP 98.5; O2SAT 99
[2023-06-30] MEDS: ATORVASTATIN 10 MG TABLET PO SCH (20:29)
[2023-06-30 23:14] VITALS: BP 119/77; TEMP 97.5; O2SAT 99
[2023-07-01] MEDS: CARBAMAZEPINE 200 MG TABLET PO SCH ×2 (08:35→16:12)
[2023-07-01] MEDS: OLANZAPINE 5 MG TABLET PO SCH ×2 (08:35→22:14)
[2023-07-01] MEDS: BACITRACIN/POLYMYXIN B 15 GM TUBE TP SCH ×2 (08:44→16:43)
[2023-07-01] MEDS: HYDROCORTISONE 1% CREAM 28.35 GM TUBE TP SCH ×2 (08:44→16:42)
[2023-07-01] MEDS: CLOTRIMAZOLE 1% 15 GM TUBE TP SCH ×2 (08:44→16:42)
[2023-07-01 09:40] VITALS: BP 119/76; TEMP 99; O2SAT 97
[2023-07-01 16:21] VITALS: BP 115/76; TEMP 97.9; O2SAT 96
[2023-07-01] MEDS: IV NS 0.9% 1,000 ML IV PRN (16:27)
[2023-07-01 20:00] VITALS: BP 145/89; TEMP 97.7; O2SAT 96
[2023-07-01] MEDS: ATORVASTATIN 10 MG TABLET PO SCH (22:14)
[2023-07-02 08:00] VITALS: BP 127/80; TEMP 98.1; O2SAT 98
[2023-07-02] MEDS: OLANZAPINE 5 MG TABLET PO SCH ×2 (09:48→21:09)
[2023-07-02] MEDS: CARBAMAZEPINE 200 MG TABLET PO SCH ×2 (09:48→16:47)
[2023-07-02] MEDS: HYDROCORTISONE 1% CREAM 28.35 GM TUBE TP SCH ×2 (10:38→16:51)
[2023-07-02] MEDS: BACITRACIN/POLYMYXIN B 15 GM TUBE TP SCH ×2 (10:38→16:51)
[2023-07-02] MEDS: CLOTRIMAZOLE 1% 15 GM TUBE TP SCH ×2 (10:39→16:52)
[2023-07-02 16:00] VITALS: BP 107/69; TEMP 99; O2SAT 98
[2023-07-02 20:00] VITALS: BP 115/69; TEMP 99; O2SAT 98
[2023-07-02] MEDS: ATORVASTATIN 10 MG TABLET PO SCH (21:09)
[2023-07-03 07:30] VITALS: BP 111/76; TEMP 98.2; O2SAT 96
[2023-07-03] MEDS: CLOTRIMAZOLE 1% 15 GM TUBE TP SCH ×2 (08:32→16:54)
[2023-07-03] MEDS: OLANZAPINE 5 MG TABLET PO SCH ×2 (08:32→21:17)
[2023-07-03] MEDS: CARBAMAZEPINE 200 MG TABLET PO SCH ×2 (08:32→16:54)
[2023-07-03] MEDS: BACITRACIN/POLYMYXIN B 15 GM TUBE TP SCH ×2 (08:33→16:54)
[2023-07-03] MEDS: HYDROCORTISONE 1% CREAM 28.35 GM TUBE TP SCH ×2 (08:33→16:54)
[2023-07-03 12:05] LABS: BASOPHILS % (AUTO) 0.7 % (0.0-2.0); EOSINOPHILS # (AUTO) 0.2 K/uL (0.0-0.7); EOSINOPHILS % (AUTO) 3.9 % (0.0-6.0); HEMATOCRIT 33 % (33-45); HEMOGLOBIN 10.5 g/dL (11.5-14.8); LYMPHOCYTES # (AUTO) 1.6 K/uL (0.8-4.8); LYMPHOCYTES % (AUTO) 25.8 % (20.0-44.0); MEAN CORPUSCULAR HEMOGLOBIN 30 PG (26.0-33.0); MEAN CORPUSCULAR HGB CONC 32 g/dl (31.0-36.0); MEAN CORPUSCULAR VOLUME 91 fL (82-100); MONOCYTES # (AUTO) 0.5 K/uL (0.1-1.30); MONOCYTES % (AUTO) 8.3 % (2.0-12.0); NEUTROPHILS # (AUTO) 3.7 K/uL (1.8-8.9); NEUTROPHILS % (AUTO) 61.3 % (43.0-81.0); PLATELET COUNT (AUTO) 208 K/uL (150-450); RED BLOOD CELL COUNT(AUTO) 3.57 MIL/uL (4.0-5.2); RED CELL DISTRIBUTION WIDTH 16.2 % (11.5-15.0); WHITE BLOOD COUNT (AUTO) 6.1 K/uL (4.3-11.0)
[2023-07-03 12:16] LABS: ALBUMIN 2.5 g/dL (3.4-5.0); CALCIUM, SERUM 10.1 mg/dL (8.5-10.1); CREATININE 1.3 mg/dL (0.6-1.3); MAGNESIUM 1.9 mg/dL (1.8-2.4); PHOSPHORUS 4.5 mg/dL (2.5-4.9); POTASSIUM 4.1 mmol/L (3.5-5.1); TOTAL PROTEIN, SERUM 6.2 g/dL (6.4-8.2)
[2023-07-03 13:09] LABS: BILIRUBIN,TOTAL 0.1 mg/dL (0.2-1.0)
[2023-07-03 20:00] VITALS: BP 115/72; TEMP 98.4; O2SAT 95
[2023-07-03] MEDS: ATORVASTATIN 10 MG TABLET PO SCH (21:17)
[2023-07-03 21:56] VITALS: BP 115/72; TEMP 98.4; O2SAT 95
[2023-07-04 07:00] VITALS: BP 115/80; TEMP 97.9; O2SAT 97
[2023-07-04] MEDS: CARBAMAZEPINE 200 MG TABLET PO SCH ×2 (09:13→16:20)
[2023-07-04] MEDS: OLANZAPINE 5 MG TABLET PO SCH ×2 (09:13→21:07)
[2023-07-04] MEDS: BACITRACIN/POLYMYXIN B 15 GM TUBE TP SCH ×2 (09:13→16:20)
[2023-07-04] MEDS: CLOTRIMAZOLE 1% 15 GM TUBE TP SCH ×2 (09:13→16:20)
[2023-07-04] MEDS: HYDROCORTISONE 1% CREAM 28.35 GM TUBE TP SCH ×2 (09:13→16:20)
[2023-07-04 16:00] VITALS: BP 121/72; TEMP 97.7; O2SAT 97
[2023-07-04 20:00] VITALS: BP 114/79; TEMP 97.5; O2SAT 96
[2023-07-04] MEDS: ATORVASTATIN 10 MG TABLET PO SCH (21:08)
[2023-07-05 08:00] VITALS: BP_SYST 123; BP_SYST 128; BP_DIAS 79; BP_DIAS 81; TEMP 98.6; TEMP 98.8; O2SAT 93; O2SAT 96
[2023-07-05] MEDS: OLANZAPINE 5 MG TABLET PO SCH ×2 (09:35→21:50)
[2023-07-05] MEDS: BACITRACIN/POLYMYXIN B 15 GM TUBE TP SCH ×2 (09:36→17:38)
[2023-07-05] MEDS: CLOTRIMAZOLE 1% 15 GM TUBE TP SCH ×2 (09:36→17:38)
[2023-07-05] MEDS: CARBAMAZEPINE 200 MG TABLET PO SCH ×2 (09:36→17:38)
[2023-07-05] MEDS: HYDROCORTISONE 1% CREAM 28.35 GM TUBE TP SCH ×2 (09:36→17:38)
[2023-07-05 14:53] LABS: BASOPHILS % (AUTO) 0.6 % (0.0-2.0); EOSINOPHILS # (AUTO) 0.3 K/uL (0.0-0.7); EOSINOPHILS % (AUTO) 5.2 % (0.0-6.0); HEMATOCRIT 33 % (33-45); HEMOGLOBIN 10.6 g/dL (11.5-14.8); LYMPHOCYTES # (AUTO) 1.9 K/uL (0.8-4.8); MEAN CORPUSCULAR HEMOGLOBIN 30 PG (26.0-33.0); MEAN CORPUSCULAR HGB CONC 32 g/dl (31.0-36.0); MEAN CORPUSCULAR VOLUME 92 fL (82-100); MONOCYTES # (AUTO) 0.5 K/uL (0.1-1.30); MONOCYTES % (AUTO) 7.4 % (2.0-12.0); NEUTROPHILS # (AUTO) 3.9 K/uL (1.8-8.9); NEUTROPHILS % (AUTO) 57.8 % (43.0-81.0); PLATELET COUNT (AUTO) 206 K/uL (150-450); RED BLOOD CELL COUNT(AUTO) 3.61 MIL/uL (4.0-5.2); RED CELL DISTRIBUTION WIDTH 16.3 % (11.5-15.0); WHITE BLOOD COUNT (AUTO) 6.7 K/uL (4.3-11.0)
[2023-07-05 15:21] LABS: ALBUMIN 2.8 g/dL (3.4-5.0); BILIRUBIN,TOTAL 0.1 mg/dL (0.2-1.0); CALCIUM, SERUM 10.6 mg/dL (8.5-10.1); CREATININE 1.2 mg/dL (0.6-1.3); MAGNESIUM 2.2 mg/dL (1.8-2.4); PHOSPHORUS 5.1 mg/dL (2.5-4.9); POTASSIUM 3.8 mmol/L (3.5-5.1); TOTAL PROTEIN, SERUM 6.7 g/dL (6.4-8.2)
[2023-07-05 16:00] VITALS: BP 112/72; TEMP 98; O2SAT 97
[2023-07-05 20:00] VITALS: BP 110/71; TEMP 97.9; O2SAT 97
[2023-07-05] MEDS: ATORVASTATIN 10 MG TABLET PO SCH (21:50)
[2023-07-06 08:00] VITALS: BP 110/70; TEMP 98.1; O2SAT 94
[2023-07-06] MEDS: BACITRACIN/POLYMYXIN B 15 GM TUBE TP SCH ×2 (08:43→16:31)
[2023-07-06] MEDS: HYDROCORTISONE 1% CREAM 28.35 GM TUBE TP SCH ×2 (08:44→16:31)
[2023-07-06] MEDS: CARBAMAZEPINE 200 MG TABLET PO SCH ×2 (08:44→16:31)
[2023-07-06] MEDS: OLANZAPINE 5 MG TABLET PO SCH ×2 (08:44→21:19)
[2023-07-06] MEDS: CLOTRIMAZOLE 1% 15 GM TUBE TP SCH ×2 (08:44→16:31)
[2023-07-06 16:00] VITALS: BP 116/75; TEMP 98.2; O2SAT 96
[2023-07-06 20:00] VITALS: BP 105/68; TEMP 97.9; O2SAT 96
[2023-07-06] MEDS: ATORVASTATIN 10 MG TABLET PO SCH (22:10)
[2023-07-07 08:30] VITALS: BP 98/65; TEMP 97.7; O2SAT 96
[2023-07-07 08:37] LABS: BASOPHILS % (AUTO) 0.6 % (0.0-2.0); EOSINOPHILS # (AUTO) 0.4 K/uL (0.0-0.7); EOSINOPHILS % (AUTO) 5.1 % (0.0-6.0); HEMATOCRIT 31 % (33-45); HEMOGLOBIN 10.3 g/dL (11.5-14.8); MEAN CORPUSCULAR HEMOGLOBIN 30 PG (26.0-33.0); MEAN CORPUSCULAR HGB CONC 33 g/dl (31.0-36.0); MEAN CORPUSCULAR VOLUME 92 fL (82-100); MONOCYTES # (AUTO) 0.6 K/uL (0.1-1.30); MONOCYTES % (AUTO) 7.5 % (2.0-12.0); NEUTROPHILS # (AUTO) 4.5 K/uL (1.8-8.9); NEUTROPHILS % (AUTO) 59.8 % (43.0-81.0); PLATELET COUNT (AUTO) 209 K/uL (150-450); RED BLOOD CELL COUNT(AUTO) 3.41 MIL/uL (4.0-5.2); WHITE BLOOD COUNT (AUTO) 7.5 K/uL (4.3-11.0)
[2023-07-07] MEDS ORDERED: Olanzapine PO (08:44)
[2023-07-07] MEDS ORDERED: CARB200T8 PO (08:44)
[2023-07-07 08:48] LABS: ALBUMIN 2.7 g/dL (3.4-5.0); BILIRUBIN,TOTAL 0.1 mg/dL (0.2-1.0); CALCIUM, SERUM 10.4 mg/dL (8.5-10.1); CREATININE 1.5 mg/dL (0.6-1.3); MAGNESIUM 2.1 mg/dL (1.8-2.4); PHOSPHORUS 5.4 mg/dL (2.5-4.9); POTASSIUM 4.2 mmol/L (3.5-5.1); TOTAL PROTEIN, SERUM 6.5 g/dL (6.4-8.2)
[2023-07-07] MEDS: HYDROCORTISONE 1% CREAM 28.35 GM TUBE TP SCH (09:49)
[2023-07-07] MEDS: OLANZAPINE 5 MG TABLET PO SCH (09:49)
[2023-07-07] MEDS: BACITRACIN/POLYMYXIN B 15 GM TUBE TP SCH (09:49)
[2023-07-07] MEDS: CLOTRIMAZOLE 1% 15 GM TUBE TP SCH (09:49)
[2023-07-07] MEDS: CARBAMAZEPINE 200 MG TABLET PO SCH (09:49)
[2023-07-08 05:08] LABS: VIT D, 25-HYDROXY 19.9 ng/mL (30.0-100.0)
== END 2023-07-07 13:31 | DRG 871 ==
LOC: ER 19:48 → TRANSITION 06-12 04:14 → TELE 06-12 08:15 → MED 06-15 11:48
PROVIDERS: ADMIT Nurse Practitioner Acute Care; ATTEND Internal Medicine
PROC: 06HY33Z Insertion of Infusion Device into Lower Vein, Percutaneous Approach (ICD-10-PCS; principal; 2023-06-12)
PROC: 5A1D70Z Performance of Urinary Filtration, Intermittent, Less than 6 Hours Per Day (ICD-10-PCS; 2023-06-12)
PROC: 05H533Z Insertion of Infusion Device into Right Subclavian Vein, Percutaneous Approach (ICD-10-PCS; 2023-06-21)
PROC: B546ZZA Ultrasonography of Right Subclavian Vein, Guidance (ICD-10-PCS; 2023-06-21)
DX: A41.9 Sepsis, unspecified organism (principal); G92.8 Other toxic encephalopathy; J15.9 Unspecified bacterial pneumonia; N17.0 Acute kidney failure with tubular necrosis; J96.01 Acute respiratory failure with hypoxia; J69.0 Pneumonitis due to inhalation of food and vomit; E44.0 Moderate protein-calorie malnutrition; N39.0 Urinary tract infection, site not specified; D68.69 Other thrombophilia; E87.0 Hyperosmolality and hypernatremia; E87.1 Hypo-osmolality and hyponatremia; E87.20 Acidosis, unspecified; I42.9 Cardiomyopathy, unspecified; J44.0 Chronic obstructive pulmonary disease with (acute) lower respiratory infection; D64.9 Anemia, unspecified; E66.01 Morbid (severe) obesity due to excess calories; E78.5 Hyperlipidemia, unspecified; E83.39 Other disorders of phosphorus metabolism; E83.41 Hypermagnesemia; E83.52 Hypercalcemia; E86.1 Hypovolemia; E87.5 Hyperkalemia; E88.09 Other disorders of plasma-protein metabolism, not elsewhere classified; F25.0 Schizoaffective disorder, bipolar type; G40.909 Epilepsy, unspecified, not intractable, without status epilepticus; G62.9 Polyneuropathy, unspecified; K21.9 Gastro-esophageal reflux disease without esophagitis; L29.9 Pruritus, unspecified; Z20.822 Contact with and (suspected) exposure to COVID-19; J44.9 Chronic obstructive pulmonary disease, unspecified; E86.0 Dehydration; Z68.27 Body mass index [BMI] 27.0-27.9, adult; B96.20 Unspecified Escherichia coli [E. coli] as the cause of diseases classified elsewhere; T43.595A Adverse effect of other antipsychotics and neuroleptics, initial encounter; G47.33 Obstructive sleep apnea (adult) (pediatric); N14.19 Nephropathy induced by other drugs, medicaments and biological substances; M89.8X9 Other specified disorders of bone, unspecified site; R23.4 Changes in skin texture; S20.111A Abrasion of breast, right breast, initial encounter; X58.XXXA Exposure to other specified factors, initial encounter; Y93.9 Activity, unspecified; R23.3 Spontaneous ecchymoses; S21.001A Unspecified open wound of right breast, initial encounter; I12.9 Hypertensive chronic kidney disease with stage 1 through stage 4 chronic kidney disease, or unspecified chronic kidney disease; N18.9 Chronic kidney disease, unspecified; Y92.129 Unspecified place in nursing home as the place of occurrence of the external cause
CPT/HCPCS: 31720; 36410; 36415; 36600; 70450-TC; 71045-TC; 71250-TC; 76770-TC; 80048-TC; 80053-TC; 80061-TC; 80076-TC; 81001; 82140-TC; 82306; 82550-TC; 82570-TC; 82652; 82803-TC; 82962-TC; 83690-TC; 83735-TC; 83880; 83935-TC; 83970; 84100-TC; 84155; 84165; 84300-TC; 84443-TC; 84484-TC; 84702-TC; 84703-TC; 85025-TC; 85610-TC; 85730-TC; 86480; 86580-TC; 86704; 86705; 86706; 86803; 87040-TC; 87081-TC; 87086-TC; 87340; 87806; 87899; 90935-TC; 92526; 92611-TC; 94640-TC; 94799-TC; 97110-TC; 97112-TC; 97116-TC; 97530-TC; A4216; A4223; A6403; C9803; G0378; G0480; J0456; J0696; J1642; J1644; J2405; J2543; J2997; J3370; J3490; J7030; J7042; J7050; J7060; J7070; P9047